=== PATIENT | female | born 1980 | race Hispanic/Latino ===

== ENCOUNTER 2016-05-23 00:33 | Inpatient (IN) | payer MEDICAID ==
[~2016-05-23] VITALS: Ht 139.7 cm; Wt 55.0 kg
[~2016-05-23 00:33] MED LIST: ADA30; FES300; PNV1TABL9
[2016-05-23] MEDS ORDERED: Lactated Ringer's 1,000 ML IV SCH ×2 (07:58→18:15)
[2016-05-23] MEDS ORDERED: Lactated Ringer's 1,000 ML IV PRN (07:58)
[2016-05-23] MEDS ORDERED: Ondansetron 2 mg/mL 2 mL Inj IVPUSH PRN (08:00)
[2016-05-23] MEDS ORDERED: Methylergonovine 0.2 mg/mL Inj IM PRN ×2 (08:00→18:15)
[2016-05-23] MEDS ORDERED: Hemorrhage Kit, Post Partum XX ONE ×2 (08:00→18:15)
[2016-05-23] MEDS ORDERED: Carboprost 250 mCg/mL Inj IM PRN ×2 (08:00→18:15)
[2016-05-23] MEDS ORDERED: Oxytocin 30 Units/500 mL LR 30 UNITS in IV Premix 1 EACH IV PRN ×2 (08:00→18:15)
[2016-05-23] MEDS ORDERED: fentaNYL-PF 50 mCg/mL 2 mL Inj IVPUSH PRN (08:00)
[2016-05-23] MEDS ORDERED: Oxytocin 10 Unit/mL Inj IM PRN ×2 (08:00→18:15)
[2016-05-23 08:23] LABS: Mean Corpuscular Hemoglobin 27.5 pg (27.0-35.0); Mean Corpuscular Volume 83.3 fL (81-100)
[2016-05-23] MEDS ORDERED: HYDROcodone-APAP 5-325 mg Tablet PO PRN (18:15)
[2016-05-23] MEDS ORDERED: LANOlin HPA 7 Gm Ointment TOPICAL PRN (18:15)
[2016-05-23] MEDS ORDERED: Witch Hazel-Glycerin Pads TOPICAL PRN (18:15)
[2016-05-23] MEDS ORDERED: Benzocaine (Dermoplast) 20% 60 Gm Spray TOPICAL PRN (18:15)
[2016-05-24 07:00] LABS: Mean Corpuscular Volume 85.2 fL (81-100)
--- NOTE | 2016-05-24 16:23 | PCM.DC.OB ---
Obstetrical Discharge Summary Date of Service May 24, 2016 Date of hospital admission May 23, 2016 at 06:51 Date of Discharge: May 24, 2016 Providers Admitting Physician: Martin Nassar MD Primary Care Physician: Martin Nassar MD Attending Physician: Martin Nassar MD Problems: (1) Status post normal vaginal delivery Status: Acute ICD Code: [id number] (2) Cholestasis of in third trimester Status: Acute ICD Code: O26.613 Consultations None Invasive procedures NVD Date of Procedure: May 23, 2016 Hospital Course: Patient induced for cholestasis. Delivered by NVD. No issues. Recovered well. Ferrous Sulfate-Expunged Drug, Do Not Renew! (Feosol-Expunged Drug, Do Not Renew !) 325 Mg Tablet (Reported) Nifedipine-Expunged Drug, Do Not Renew! (Nifedipine-Expunged Drug, Do Not Renew! ) 30 Mg Tber (Reported) Pnv Comb.no1/Iron,Carb/Lilliana/Fa-Expunged Drug, ( Mulitvitamin Ultra- Expunged Drug, Do) 1 Tab Tablet (Reported) Discharge Activity-General: Pelvic Rest for 6 weeks, Try not to overdue, Be up and about, Balance rest and activity, Activity as pain allows, No lifting >15 pounds for 2 weeks Martin Nassar MD May 24, 2016 16:23
--- NOTE | 2016-05-24 16:24 | PCM.DIOB ---
Obstetrical Disch Instruction Date of Service: May 24, 2016 Dates of Hospitalization Date of Hospital Admission May 23, 2016 at 06:51 Providers Admitting Physician: Martin Nassar MD Primary Care Physician: Martin Nassar MD Attending Physician: Martin Nassar MD Discharge Diagnosis Problems: (1) Status post normal vaginal delivery Status: Acute ICD Code: [id number] Diet Discharge Diet: No restrictions Activity Discharge Activity-General: Pelvic Rest for 6 weeks, Be up and about, Activity as pain allows, No lifting >15 pounds for 2 weeks Dressing and Incisional Care Hygiene: May shower, Perineal care, Sitz bath, Dermoplast spray, Witch Margarita pads Follow Up Plan Follow-up Provider (F9): Martin Nassar MD Follow-up appointment: Weeks (8) Call your provider for: Fever or Chills, Heavy vaginal bleeding, Excessive constipation, Vaginal discomfort, Red painful breasts Martin Nassar MD May 24, 2016 16:24
[2016-05-24] MEDS ORDERED: IBUP800T28 PO (16:25)
[2016-05-24 17:40] VITALS: BP 88/31; PULSE 57; RESP 16
[2016-05-25 09:42] VITALS: BP 93/45; PULSE 74; RESP 17
--- NOTE | 2016-05-25 18:05 | PROCED ---
[address] [address] PROCEDURE NOTE PATIENT: YANNICK BORREGO : 1980 MR#: [id number] ADMIT: 05/23/2016 JOB ID: [id number] DATE OF SERVICE: 05/23/2016 POSTOPERATIVE DIAGNOSIS(ES): PREOPERATIVE DIAGNOSIS(ES): SURGEON: Martin Nassar MD. On May 23, 2016 at 6:05 p.m., this 36-year-old, G4, P2 female at 37 weeks and 4 days estimated gestational age delivered a vigorous female with Apgars of 8 and 9 by normal vaginal delivery Who weighed 6 pound 9 ounces. The patient presented to Labor and Delivery for induction due to cholestasis of . She was placed on Pitocin given that she was 3 cm dilated already. She gradually changed her cervix to 4 cm over the course of the morning and early afternoon. She was given increasing doses of Pitocin, but the heart rate appeared excellent and was reactive and reassuring. The patient was still 4.5- 5 cm by 5 p.m. Her membranes were unruptured. I artificially ruptured her membranes at around that time which resulted in fluid with light meconium. She rapidly progressed to complete by 6 p.m. She pushed for 5 minutes and delivered across an intact perineum. She had a right and left first-degree labial tear. The cord was clamped and cut and the was handed to the waiting patient. The cord was not long enough to do delayed cord clamping. Resuscitation was done on the patient's belly. The placenta delivered approximately 5 minutes later spontaneously and intact with a three-vessel cord. The patient had a gush of blood which resulted in an estimated blood loss of 3-400 cc. After that point her uterus was more firm and Pitocin was kept running to help with this. The patient had no other complications and her counts were correct x2. Her uterus was firm. Her cervix was intact. Her rectum was intact and she was in excellent condition.
--- NOTE | 2016-06-27 17:54 | PCM.HPOB ---
Subjective Date of Service: May 23, 2016 Referring Provider: Admitting Physician: Martin Nassar MD Primary Care Physician: Martin Nassar MD Attending Physician: Martin Nassar MD Chief Complaint Cholestasis at term History of Present History of Present Illness Cholestasis of OB History: (4), Para (2) Past Medical History Obstetrical History: NVD x 2 and SAB x 2 Medical History: N/C Surgical History: D and C x 2 Social History: with two kids Hx Tobacco Use: No Hx Alcohol Use: No Hx Substance Use: No Past Family History Living Arrangement: with Family Genetic Screening/Counseling Genetic Screening/Counseling: Negative Review of Systems Constitutional: Y: Change of appitite Cardiovascular: Denies: Chest Pain Respiratory: Denies: Cough Genitourinary: Denies: Dysuria Allergy Coded Allergies: No Known Allergies (Verified Allergy, Severe, 06/18/04) Exam Constitutional: Well-developed Lungs: Clear to Auscultation Heart: Exam Unremarkable Abdomen: Gravid Extremities: Pulses Palpable x4 Neurological/Psychiatric: Alert, Oriented X3 Neuro: Grossly Neurologically Intact Gynecologic: Normal: Cervix OB Intrapartum Assessment/Plan Problems: (1) Cholestasis of in third trimester Plan: Admit and induce with cytotec/pitocin. Epidural prn Status: Acute ICD Code: O26.613 Pain Evaluation: Adequate Pain Control Post plan: Other Martin Nassar MD Jun 27, 2016 17:54
== END 2016-05-25 11:27 | disposition home or self-care (01) | DRG 775 ==
LOC: FBC 06:51
PROVIDERS: ADMIT Family Medicine; ATTEND Family Medicine
PROC: 10E0XZZ Delivery of Products of Conception, External Approach (ICD-10-PCS; principal; 2016-05-23)
PROC: 3E033VJ Introduction of Other Hormone into Peripheral Vein, Percutaneous Approach (ICD-10-PCS; 2016-05-23)
PROC: 10907ZC Drainage of Amniotic Fluid, Therapeutic from Products of Conception, Via Natural or Artificial Opening (ICD-10-PCS; 2016-05-23)
DX: O26.613 Liver and biliary tract disorders in pregnancy, third trimester (principal); K83.1 Obstruction of bile duct; Z3A.37 37 weeks gestation of pregnancy; O77.0 Labor and delivery complicated by meconium in amniotic fluid; Z37.0 Single live birth; O62.3 Precipitate labor